=== PATIENT | male | born 1980 | race Caucasian/White ===

== ENCOUNTER 2020-09-26 16:34 | Emergency (ER) | payer MEDICAID, MEDICARE, SELFPAY ==
[~2020-09-26] VITALS: Ht 182.9 cm; Wt 87.0 kg
[2020-09-26 16:56] LABS: MEAN CORPUSCULAR HGB CONC 34.8 g/dL (33.2-36.2); MEAN PLATELET VOLUME 8.5 fL (7.4-10.4); PLATELET COUNT 238 x10^3/uL (130-400); RED CELL DISTRIBUTION WIDTH 13.1 % (9.4-14.8)
[2020-09-26] MEDS ORDERED: SODIUM CHLORIDE 0.9% 1,000ML IVBOLUS ONE ×2 (17:00→18:30)
--- NOTE | 2020-09-26 17:05 | NUR ---
TO [facility] FROM LOBBY
[2020-09-26 17:07] LABS: ALBUMIN 4.2 g/dL (3.4-5.0); ANION GAP 7 mmol/L (5-15); CALCIUM 9.3 mg/dL (8.5-10.1); CHLORIDE 111 mmol/L (98-107)
[2020-09-26 17:10] LABS: ALANINE AMINOTRANSFERASE 31 U/L (12-78); ALKALINE PHOSPHATASE 30 U/L (45-117); BILIRUBIN,TOTAL 0.9 mg/dL (0.2-1.0); CREATININE 1.24 mg/dL (0.7-1.3); TOTAL PROTEIN 7.6 g/dL (6.4-8.2)
[2020-09-26] MEDS ORDERED: FAMOTIDINE 20 MG/2 ML ONE (17:13)
[2020-09-26] MEDS ORDERED: ONDANSETRON 2MG/ML, 2ML ONE (17:13)
[2020-09-26] MEDS ORDERED: OMEP-110 PO (17:30)
[2020-09-26] MEDS ORDERED: ONDANSETRON 2MG/ML, 2ML IVPush ONE (17:30)
[2020-09-26] MEDS ORDERED: SODIUM CHLORIDE 0.9% 1,000 ML IV ONE (17:30)
[2020-09-26] MEDS ORDERED: FAMOTIDINE 20 MG/2 ML IVPush ONE (17:30)
[2020-09-26] MEDS ORDERED: SODIUM CHLORIDE FLUSH 10ML SYR IVF ONE (17:30)
--- NOTE | 2020-09-26 17:31 | NUR ---
PIV EST AND PT MED NOTED, IVF INFUSING W/O DIFFICULTY. CALL LIGHT W/I REACH, VSS.
[2020-09-26 17:43] LABS: <PLATELET ESTIMATE> ADEQUATE; <PLT MORPHOLOGY> NORMAL PLT MORPH; <RBC MORPHOLOGY> NORMAL; BAND#(MANUAL) 1.92 x10^3/uL; BANDS%(MANUAL) 12 % (0-7); LYMPH#(MANUAL) 0.32 x10^3/uL (1-3.4); LYMPHS% (MANUAL) 2 % (22-44); METAMYELOCYTES# (MANUAL) 0.16 x10^3/uL (0-0); METAMYELOCYTES% (MANUAL) 1 % (0-1); MONOS#(MANUAL) 0.48 x10^3/uL (0.3-2.7); MONOS% (MANUAL) 3 % (2-9); SEG#(MANUAL) 13.12 x10^3/uL (1.8-6.8); SEGS% (MANUAL) 82 % (42-75)
[2020-09-26 17:45] LABS: MICROSCOPIC NOT IND
[2020-09-26] MEDS ORDERED: KETOROLAC 30 MG/1 ML ONE (18:13)
--- NOTE | 2020-09-26 18:17 | NUR ---
2ND NS BOLUS STARTED, AND PT MED NOTED FOR ALL OVER PAIN" 9/10". VSS, NO VOMITING BUT PT CONT TO C/O NAUSEA. CALL LIGHT W/I REACH
[2020-09-26] MEDS ORDERED: KETOROLAC 30 MG/1 ML IVPush ONE (18:30)
--- NOTE | 2020-09-26 18:46 | NUR ---
CHART UP FOR RECHECK, PT AWARE. SBAR RPT [facility] [place].
[2020-09-26 19:41] VITALS: BP 105/84
== END 2020-09-26 19:49 | disposition home or self-care (01) ==
LOC: ED 18:30
DX: R11.2 Nausea with vomiting, unspecified (principal); R19.7 Diarrhea, unspecified; R10.84 Generalized abdominal pain
CPT/HCPCS: 36415; 80053; 81003; 83690; 85025; 96361; 96374; 96375; 99284; J1885; J2405; J7030

== ENCOUNTER 2020-09-29 07:05 | Emergency (ER) | payer MEDICAID ==
[~2020-09-29] VITALS: Ht 182.9 cm; Wt 90.0 kg
[~2020-09-29 07:05] MED LIST: OMEP-110 PO
[2020-09-29 07:10] VITALS: BP 127/77
--- NOTE | 2020-09-29 07:26 | NUR ---
PATIENT WHEELED BACK FROM TRIAGE WITH CHIEF C/O LEFT ANKLE INJURY. PER PATIENT "I THINK I BROKE MY ANKLE." PATIENT JUMPED OFF PORCH LAST NIGHT AND LANDED ON STICK ON HIS LEFT ANKLE. LEFT ANKLE WRAPPED IN MELE WRAP, WHEN REMOVED ANKLE IS SWOLLEN AND TENDER TO MOVE OR TOUCH. ERPA AT BEDSIDE FOR EVALUATION.
[2020-09-29] MEDS ORDERED: HYDROcodone/APAP 5/325 TABLET PO ONE (07:30)
[2020-09-29] MEDS ORDERED: HYDROcodone/APAP 5/325 TABLET ONE (07:34)
--- NOTE | 2020-09-29 08:24 | NUR ---
ERPA AT BEDSIDE TO DISCUSS POC.
--- NOTE | 2020-09-29 08:48 | NUR ---
ED TECHS AT BEDSIDE FOR SPLINT.
--- NOTE | 2020-09-29 09:11 | NUR ---
Patient given discharge instructions and prescription and they have confirmed that they understand the instructions. Patient ambulatory with steady gait and use of crutches. NAD, all questions answered appropriately, denies additional needs at this time. No personal belongings left in room after discharge.
== END 2020-09-29 09:12 | disposition home or self-care (01) ==
LOC: ED 08:11
DX: S82.52XA Displaced fracture of medial malleolus of left tibia, initial encounter for closed fracture (principal); X58.XXXA Exposure to other specified factors, initial encounter; Y93.89 Activity, other specified; Y92.89 Other specified places as the place of occurrence of the external cause; Y99.8 Other external cause status
CPT/HCPCS: 29515; 99283; 99284